=== PATIENT | female | born 1975 | race Caucasian/White ===

== ENCOUNTER → 2016-10-03 | Outpatient (CLI) | payer OTHER ==
[~2016-10-03] MED LIST: ACETAMINOPHEN325 MG PO; ACETAMINOPHEN500 M4 PO; ADVAIR 250-501 EAC1 INH; ALBUTEROL0.83 MG/ML INH; BENTYL20 MG PO; CLARITIN10 M2 PO; LINZESS145 MCG PO; PANTOPRAZOLE SO40 MG PO; PROAIR HFA8.5 GM INH; PROVENTIL0.83 MG/ML NEB; SYMBICORT INH
--- NOTE | ~2016-10-03 | MY29 ---
[facility] A Service of [facility] RADIOLOGY TEXT RESULTS PATIENT: COLT TAM LOCATION: [facility] : 73 UNIT #: [id number] AGE: [address]: Amanda Holden MD SEX: F ORDER DR: [id number] [facility] [address] [place], [place] [address] [id number] O MR#: [id number] Acc #: [id number] NAME: COLT TAM : 1975 SEX: F STUDY DATE/TIME: 10/03/2016 11:24 UNIT: [facility] ROOM: STUDY DESCRIPTION: MY EDELMIRA SCREENING W/ CAD BILAT Attending Physician: Amanda Holden M.D. Ordering Physician: Amanda Holden M.D. Primary Care Physician: Amanda Holden M.D. MEDICAL IMAGING REPORT This report is preliminary unless electronic signature is present EXAM Digital screening mammogram 10/03/2016, [facility]. HISTORY 40-year-old woman. No risk elevation. Bilateral nipple pain off and on. COMPARISON Outside mammogram now available, date 08/06/2009, from [facility]. FINDINGS Digital imaging of each breast was completed utilizing screening protocol. Review includes FDA-approved CAD device. Right breast is larger than left. Small island of fibroglandular parenchyma projects upper outer posterior third right breast. There is no interval occurring breast mass. There are no suspicious microcalcifications and no architectural deformity. IMPRESSION Negative mammogram. Annual screening recommended. Patients over the age of 40 are entered into a reminder system with target due date for the next mammogram. A result letter will be sent to the patient. BIRADS: 1 Negative. Dictated by... Ra Veras M.D. THIS IS AN ELECTRONICALLY VERIFIED REPORT Ra Veras M.D. at 10/08/2016 8:03 AM TONY/andrea [facility] A Service of [facility] RADIOLOGY TEXT RESULTS PATIENT: COL[facility] TAM [id number] 73 UNIT #: [id number] AGE: [address]: Amanda Holden MD SEX: F ORDER DR: TD: 10/07/2016 16:12 JOB #: [id number] MEDICAL IMAGING REPORT Page 1 of 1 COPY
== END | disposition home or self-care (01) ==
LOC: CWCC 09-30 10:45
DX: Z12.31 Encounter for screening mammogram for malignant neoplasm of breast (principal)
CPT/HCPCS: G0202

== ENCOUNTER → 2016-10-14 | Outpatient (CLI) | payer OTHER ==
--- NOTE | ~2016-10-14 | CR236 ---
[facility] A Service of [facility] & [facility] RADIOLOGY TEXT RESULTS PATIENT: COLT TAM LOCATION: [facility] : 73 UNIT #: [id number] AGE: [address]: Doni Phillips MD SEX: F ORDER DR: [id number] [facility] [address] [place], [place] [address] [id number] O MR#: [id number] Acc #: [id number] NAME: COLT TAM : 1975 SEX: F STUDY DATE/TIME: 10/14/2016 10:13 UNIT: [facility] ROOM: STUDY DESCRIPTION: CR Small Bowel Sbft W Films Attending Physician: Doni Phillips M.D. Referring Physician: Doni Phillips M.D. Ordering Physician: Doni Phillips M.D. Primary Care Physician: Amanda Holden M.D. MEDICAL IMAGING REPORT This report is preliminary unless electronic signature is present EXAM Small bowel follow-through INDICATIONS Constipation for 4 months. The fluoroscopy time was 3 minutes. TECHNIQUE 4 fluoroscopic images were obtained. COMPARISON 06/08/2015 FINDINGS The small bowel transit time is normal. There is no evidence for a small bowel obstruction. Normal appearing small bowel fold pattern. IMPRESSION Negative examination. Dictated by... Walt Diaz M.D. THIS IS AN ELECTRONICALLY VERIFIED REPORT Walt Diaz M.D. at 10/15/2016 10:28 AM ARS/to TD: 10/14/2016 16:53 JOB #: [id number] MEDICAL IMAGING REPORT Page 1 of 1 COPY
== END | disposition home or self-care (01) ==
LOC: CRAD 08:52
DX: R10.9 Unspecified abdominal pain (principal); R11.2 Nausea with vomiting, unspecified
CPT/HCPCS: 74250

== ENCOUNTER → 2016-10-24 | Outpatient (CLI) | payer OTHER ==
--- NOTE | ~2016-10-24 | CR133 ---
[facility] A Service of [facility] RADIOLOGY TEXT RESULTS PATIENT: COLT TAM LOCATION: [facility] : 73 UNIT #: [id number] AGE: [address]: OWEN KAT SEX: F ORDER DR: [id number] [facility] [address] [place], [place] [address] [id number] O MR#: [id number] Acc #: [id number] NAME: COLT TAM : 1975 SEX: F STUDY DATE/TIME: 10/24/2016 13:09 UNIT: [facility] ROOM: STUDY DESCRIPTION: CR Forearm 2 View Rt Attending Physician: Elaine Berger Referring Physician: Elaine Berger Ordering Physician: Elaine Berger Primary Care Physician: Amanda Holden M.D. MEDICAL IMAGING REPORT This report is preliminary unless electronic signature is present EXAM Right forearm. INDICATIONS Right forearm pain. Numbness and tingling in the right upper extremity. FINDINGS Two views of the right forearm without comparison. There is no acute fracture or dislocation. Articulation at the elbow and wrist is anatomic. IMPRESSION Negative right forearm. Dictated by... Jose E Nielsen M.D. THIS IS AN ELECTRONICALLY VERIFIED REPORT Jose E Nielsen M.D. at 10/25/2016 8:01 PM BELLA/lesa TD: 10/25/2016 15:58 JOB #: [id number] MEDICAL IMAGING REPORT Page 1 of 1 COPY
--- NOTE | ~2016-10-24 | CR142 ---
[facility] A Service of [facility] & [facility] RADIOLOGY TEXT RESULTS PATIENT: COLT TAM LOCATION: [facility] : 73 UNIT #: [id number] AGE: [address]: OWEN KAT SEX: F ORDER DR: [id number] [facility] [address] [place], [place] [address] [id number] O MR#: [id number] Acc #: [id number] NAME: COLT TAM : 1975 SEX: F STUDY DATE/TIME: 10/24/2016 12:59 UNIT: [facility] ROOM: STUDY DESCRIPTION: CR Hand Min 3 Views Rt Attending Physician: Elaine Berger Referring Physician: Elaine Berger Ordering Physician: Elaine Berger Primary Care Physician: Amanda Holden M.D. MEDICAL IMAGING REPORT This report is preliminary unless electronic signature is present EXAM Right hand. INDICATIONS Right hand pain for 3 to 4 months. Pain, numbness and tingling in the hand. FINDINGS Three views of the right hand without comparison. There is no acute fracture or dislocation. Alignment is anatomic. No foreign body. IMPRESSION Negative right hand. Dictated by... Jose E Nielsen M.D. THIS IS AN ELECTRONICALLY VERIFIED REPORT Jose E Nielsen M.D. at 10/25/2016 3:58 PM BELLA/lesa TD: 10/25/2016 15:52 JOB #: [id number] MEDICAL IMAGING REPORT Page 1 of 1 COPY
== END | disposition home or self-care (01) ==
LOC: CRAD 12:48
DX: M79.641 Pain in right hand (principal); M79.631 Pain in right forearm
CPT/HCPCS: 73090; 73130